=== PATIENT | female | born 1950 | race Caucasian/White ===

== ENCOUNTER → 2019-04-16 | Outpatient (CLI) | payer MEDICARE ==
[~2019-04-16] MED LIST: ASPI-496 PO; CHOL100011 PO; ESTR1TAB15 PO; LACT1CAP35 PO; MULT-717 PO; SUPPORT PO
== END | disposition home or self-care (01) ==
LOC: STAR 11:10
PROVIDERS: ATTEND Surgery
DX: Z01.818 Encounter for other preprocedural examination (principal); Z87.891 Personal history of nicotine dependence
CPT/HCPCS: 93005

== ENCOUNTER 2019-04-30 10:17 | Day surgery (SDC) | payer MEDICARE ==
[~2019-04-30] VITALS: Ht 165.1 cm; Wt 63.4 kg
[2019-04-30] MEDS ORDERED: LIDOCAINE 1%, 20ML ONE (10:30)
[2019-04-30] MEDS ORDERED: SODIUM BICARBONATE 4.0%, 5ML ONE (10:30)
[2019-04-30] MEDS ORDERED: BUPIVACAINE/PF 0.5% ONE (11:01)
[2019-04-30] MEDS ORDERED: MIDAZOLAM 1 MG/ML, 2ML ONE (11:15)
[2019-04-30] MEDS ORDERED: FENTANYL PF 250 MCG/5ML ONE (11:15)
[2019-04-30] MEDS ORDERED: PROPOFOL 50 ML ONE (11:15)
[2019-04-30] MEDS ORDERED: METOPROLOL 1 MG/ML, 5ML IV PRN (11:30)
[2019-04-30] MEDS ORDERED: EPHEDRINE 50 MG/ML, 1ML IVPush PRN (11:30)
[2019-04-30] MEDS ORDERED: OXYcodone 5 MG/5 ML ORAL.SOL UDC PO PRN (11:30)
[2019-04-30] MEDS ORDERED: ACETAMINOPHEN 325 MG TABLET PO PRN (11:30)
[2019-04-30] MEDS ORDERED: hydrALAzine 20 MG/ML, 1ML IV PRN (11:30)
[2019-04-30] MEDS ORDERED: MIDAZOLAM 1 MG/ML, 2ML IV PRN (11:30)
[2019-04-30] MEDS ORDERED: EPHEDRINE 50 MG/ML, 1ML IM PRN (11:30)
[2019-04-30] MEDS ORDERED: MEPERIDINE/PF 25MG/ML,1ML IVPush PRN (11:30)
[2019-04-30] MEDS ORDERED: ONDANSETRON 2MG/ML, 2ML IV PRN (11:30)
[2019-04-30] MEDS ORDERED: DIAZEPAM 5 MG/ML, 2ML IVPush PRN (11:30)
[2019-04-30] MEDS ORDERED: DIPHENHYDRAMINE 50 MG/ML, 1ML IM PRN (11:30)
[2019-04-30] MEDS ORDERED: FENTANYL PF 100 MCG/2ML IV PRN (11:30)
[2019-04-30] MEDS ORDERED: MORPHINE SULFATE 4 MG/ML, 1ML IVPush PRN (11:30)
[2019-04-30] MEDS ORDERED: PROMETHAZINE 25 MG/ML, 1ML IV PRN (11:30)
[2019-04-30] MEDS ORDERED: ONDANSETRON ODT 8 MG PO PRN (11:30)
[2019-04-30 11:47] VITALS: BP 131/82
[2019-04-30] MEDS ORDERED: LACTATED RINGERS 1,000 ML IV SCH (11:54)
[2019-04-30] MEDS ORDERED: BUPIVACAINE/PF 0.25% INFIL ONE (13:22)
[2019-04-30] MEDS ORDERED: ONDANSETRON 2MG/ML, 2ML ONE (17:14)
[2019-04-30] MEDS ORDERED: DEXAMETHASONE 4 MG/ML, 1ML ONE (17:14)
[2019-04-30] MEDS ORDERED: PROPOFOL 10 MG/ML, 20ML ONE (17:14)
[2019-04-30] MEDS ORDERED: CEFAZOLIN 1,000 MG ONE (17:14)
== END 2019-04-30 15:30 | disposition home or self-care (01) ==
LOC: SDC 10:17 → EDSTATUS 12:30 → OUT 15:30
PROVIDERS: ATTEND Surgery
DX: N63.20 Unspecified lump in the left breast, unspecified quadrant (principal); N60.22 Fibroadenosis of left breast
CPT/HCPCS: 19125; 19285; 76098; 77065; 88307; J0690; J1100; J2250; J2405; J2704; J3010; J3490; J7120